=== PATIENT | male | born 1950 | race Caucasian/White ===

== ENCOUNTER 2017-02-21 21:09 | Inpatient (IN) | payer OTHER ==
[~2017-02-21] VITALS: Ht 180.3 cm; Wt 94.8 kg
[2017-02-21] MEDS ORDERED: INSU100I SC ×3 (21:51)
[2017-02-21] MEDS ORDERED: INSDGI SC (21:51)
[2017-02-21 21:54] LABS: BASO % 0.3 %; BASO ABS # 0.03 K/uL (0-0.2); COMPLETE YES; EOS % 1.8 %; HEMATOCRIT 43.2 % (42-52); IG% 0.4 %; LYMPH ABS # 3.59 K/uL (1.2-3.4); MEAN CELL VOLUME 92.7 fL (80-100); MEAN CORPUSCULAR HEMOGLOBIN 32.2 pg (25-34); MEAN CORPUSCULAR HGB CONC 34.7 g/dl (32-36); MEAN PLATELET VOLUME 11.6 fL (7.4-10.4); MONO % 8.3 %; NEUT % 55.2 %; PLATELET COUNT 211 K/uL (130-400); RED BLOOD COUNT 4.66 M/uL (4.7-6.1); WHITE BLOOD COUNT 10.55 K/uL (4.8-10.8)
--- NOTE | 2017-02-21 22:00 | EMERGENCY ROOM VISIT NOTE ---
History Report prepared by Jaycee: Christian Valentin Under the Supervision of: Dr. Jeff Mcdaniels M.D. 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 The patient had 1 episode of syncope while he was getting gas for his car. He awoke with people surrounding him and EMS arriving. Per EMS, his blood sugar was less than 70. He was given orange juice, Zofran, and 1/2 amp dextrose en route. He notes head pain and right rib pain. He rates his pain a 4/10 in severity. He denies any chest pain, shortness of breath, abdominal pain, leg swelling, or neck pain. He notes that his eating time has been erratic recently and he may have taken too much insulin today. He denies a history of blood clots. 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 A total of 10 systems reviewed and were otherwise negative. Past Medical & Surgical Medical Problems: (1) Diabetes Family History Omitted secondary to age. Social History Smoking Status: Never Smoker Smokeless Tobacco Use: No Drug Use: none Marital Status: Housing Status: lives with family Current/Historical Medications Scheduled Insulin Glargine (Lantus), 41 UNITS SC QPM Insulin Lispro (Human) (Humalog), 15 UNITS SC QAM Insulin Lispro (Human) (Humalog), 15 UNITS SC AT LUNCH Insulin Lispro (Human) (Humalog), 20 UNITS SC QPM Allergies Coded Allergies: No Known Allergies (Unverified , 02/21/17) Physical Exam Vital Signs Date Time Temp Pulse Resp B/P Pulse Ox O2 Delivery O2 Flow Rate FiO2 02/21/17 23:15 66 16 143/117 97 02/21/17 21:21 60 02/21/17 21:16 36.5 65 16 162/84 98 Room Air Physical Exam GENERAL: Patient is well appearing and in no acute distress. HEENT: Normocephalic, mucous membranes moist, no nasal congestion, no scleral icterus. Large abrasion to the right gnosticism. NECK: No stridor, no adenopathy, no meningismus, trachea is midline. LUNGS: No dyspnea. Clear to auscultation and equal bilaterally. No wheeze, no rhonchi. HEART: Regular rate and rhythm. No murmurs, rubs, gallops appreciated. ABDOMEN: Soft, nontender, bowel sounds positive, no masses appreciated, no peritonitis. BACK: No midline tenderness, no CVA tenderness EXTREMITIES: Normal motion all extremities, no cyanosis, no edema. NEUROLOGIC: Alert and oriented, no acute motor or sensory deficits, no focal weakness, cranial nerves grossly intact. SKIN: No rash, no jaundice, no diaphoresis. Medical Decision & Procedures ER Provider Diagnostic Interpretation: Radiology results are stated below per my review and radiologist interpretation: CHEST ONE VIEW PORTABLE HISTORY: syncope COMPARISON: None. FINDINGS: The lungs are clear. Cardiac silhouette is top normal in size. No pleural effusions. No pneumothorax. IMPRESSION: No acute process. Electronically signed by: Uog Blount M.D. 02/21/2017 10:25 PM Dictated Date/Time: 02/21/2017 10:[address]AST CT DOSE: 712.55 mGy.cm HISTORY: syncope left head injury TECHNIQUE: Multiaxial CT images of the head were performed without the use of intravenous contrast. Automated exposure control was utilized for this study. Comparison: None. Findings: The paranasal sinuses and mastoid air cells are clear. The calvarium and skull base are intact. The ventricles and sulci are within normal limits. There is no mass, hematoma, midline shift, or acute infarct. Mild right-sided scalp swelling. Impression: No acute intracranial abnormality. Electronically signed by: Ugo Blount M.D. 02/21/2017 10:40 PM Dictated Date/Time: 02/21/2017 10:36 PM CTA CHEST: No prior CT. Chest x-ray same date Very small portion of the lung bases are not imaged. No evidence for PE. Borderline heart size. Atelectasis. No CT evidence for edema. No consolidation. No effusions seen. Old granulomatous disease, too small to characterize low-density liver lesions, and other incidental findings. Radiologist: Pritesh Bernal M.D. Laboratory Results 02/21/17 20:30 Red Blood Count 4.66, Mean Corpuscular Volume 92.7, Mean Corpuscular Hemoglobin 32.2, Mean Corpuscular Hemoglobin Concent 34.7, Mean Platelet Volume 11.6, Neutrophils (%) (Auto) 55.2, Lymphocytes (%) (Auto) 34.0, Monocytes (%) (Auto) 8.3, Eosinophils (%) (Auto) 1.8, Basophils (%) (Auto) 0.3, Neutrophils # (Auto) 5.82, Lymphocytes # (Auto) 3.59, Monocytes # (Auto) 0.88, Eosinophils # (Auto) 0.19, Basophils # (Auto) 0.03 02/21/17 20:30 Test 02/21/17 20:30 02/21/17 22:00 02/21/17 22:36 02/21/17 22:48 White Blood Count 10.55 K/uL (4.8-10.8) Red Blood Count 4.66 M/uL (4.7-6.1) Hemoglobin 15.0 g/dL (14.0-18.0) Hematocrit 43.2 % (42-52) Mean Corpuscular Volume 92.7 fL (80-100) Mean Corpuscular Hemoglobin 32.2 pg (25-34) Mean Corpuscular Hemoglobin Concent 34.7 g/dl (32-36) Platelet Count 211 K/uL (130-400) Mean Platelet Volume 11.6 fL (7.4-10.4) Neutrophils (%) (Auto) 55.2 % Lymphocytes (%) (Auto) 34.0 % Monocytes (%) (Auto) 8.3 % Eosinophils (%) (Auto) 1.8 % Basophils (%) (Auto) 0.3 % Neutrophils # (Auto) 5.82 K/uL (1.4-6.5) Lymphocytes # (Auto) 3.59 K/uL (1.2-3.4) Monocytes # (Auto) 0.88 K/uL (0.11-0.59) Eosinophils # (Auto) 0.19 K/uL (0-0.5) Basophils # (Auto) 0.03 K/uL (0-0.2) RDW Standard Deviation 42.8 fL (36.4-46.3) RDW Coefficient of Variation 12.8 % (11.5-14.5) Immature Granulocyte % (Auto) 0.4 % Immature Granulocyte # (Auto) 0.04 K/uL (0.00-0.02) Anion Gap 8.0 mmol/L (3-11) Est Creatinine Clear Calc Drug Dose 100.0 ml/min Estimated GFR () 105.5 Estimated GFR (Non- 91.0 BUN/Creatinine Ratio 15.9 (10-20) Calcium Level 8.7 mg/dl (8.5-10.1) Total Bilirubin 0.4 mg/dl (0.2-1) Aspartate Amino Transf (AST/SGOT) 19 U/L (15-37) Alanine Aminotransferase (ALT/SGPT) 24 U/L (12-78) Alkaline Phosphatase 74 U/L (45-117) Total Creatine Kinase 169 U/L (39-308) Creatine Kinase MB 1.3 ng/ml (0.5-3.6) Creatine Kinase MB Ratio 0.8 (0-3.0) Total Protein 7.2 gm/dl (6.4-8.2) Albumin 3.8 gm/dl (3.4-5.0) Globulin 3.4 gm/dl (2.5-4.0) Albumin/Globulin Ratio 1.1 (0.9-2) Thyroid Stimulating Hormone (TSH) 1.640 uIu/ml (0.300-4.500) Urine Color YELLOW Urine Appearance CLEAR (CLEAR) Urine pH 8.5 (4.5-7.5) Urine Specific [place] 1.014 (1.000-1.030) Urine Protein NEG (NEG) Urine Glucose (UA) NEG (NEG) Urine Ketones NEG (NEG) Urine Occult Blood NEG (NEG) Urine Nitrite NEG (NEG) Urine Bilirubin NEG (NEG) Urine Urobilinogen NEG (NEG) Urine Leukocyte Esterase NEG (NEG) Urine WBC (Auto) 1-5 /hpf (0-5) Urine RBC (Auto) 0-4 /hpf (0-4) Urine Hyaline Casts (Auto) 1-5 /lpf (0-5) Urine Epithelial Cells (Auto) >30 /lpf (0-5) Urine Bacteria (Auto) NEG (NEG) Urine Renal Epithelial Cells 0-5 /lpf (0-5) D-Dimer 2600 ug/L FEU (0-500) Bedside Glucose 75 mg/dl (70-99) Test 02/22/17 00:12 Bedside Troponin I 0.010 ng/ml (0-0.045) Laboratory results as reviewed by me. Medications Administered Medications (Trade) Dose Ordered Sig/Mp Route Start Time Stop Time Status Last Admin Dose Admin Ibuprofen (Motrin Tab) 600 mg NOW STAT PO 02/21/17 22:03 02/21/17 22:04 DC 02/21/17 22:13 600 MG Dextrose (Dextrose 50% 50ML Syringe) 50 ml NOW STAT IV 02/21/17 22:42 02/21/17 22:43 DC 02/21/17 22:53 50 ML Ondansetron HCl (Zofran Inj) 4 mg NOW STAT IV 02/21/17 23:01 02/21/17 23:03 DC 02/21/17 23:15 4 MG ECG Indication: syncope Rate (beats per minute): 61 Rhythm: normal sinus Findings: no acute ischemic change, no ectopy ED Course 0: The patient was evaluated in room A9. A complete history and physical exam was performed. 2202: Ordered Ibuprofen 600 mg PO 2241: Ordered Dextrose 50 ml IV 6: He informed me that this blood sugar must be low because he is feeling lightheaded. 2300: Ordered Zofran Inj 4 mg IV 230: The patient's blood sugar is dropping. We gave him an AMP 350. He is beginning to have nausea and shortness of breath. He also told me that he remembers some from his syncopal episode. He remembers trying to step over the gas line when he was fueling his car, and he may have tripped. 0: Reevaluated the patient. Discussed results. Given symptoms and findings I have advised he be evaluated by hospitalist and he is agreeable to this. Medical Decision Differential: Vaso-vagal, Intracerebral Event, Neurologic, Infectious, Volume Deficiency, Hypoglycemia, Electrolyte Abnormality, Cardiac Source, Toxicologic, amongst other pathologies entertained. 66 yr old male arrives for evaluation post syncope. Hypoglycemic and requiring dextrose, multiple rounds of food to keep sugars up. CT head negative. Dimer elevated thus with travel will do CT chest which was fortunately negative. Trop has gone from zero to 0.01 an almost imperceptible increase and is still within normal limits thus I have low suspecion that htis iwas cardiac event though it is a change. With his history will need syncope rule out. Impression Primary Impression: Syncope and collapse Additional Impressions: Head injury, closed Concussion Hypoglycemia Scribe Attestation The scribe's documentation has been prepared under my direction and personally reviewed by me in its entirety. I confirm that the note above accurately reflects all work, treatment, procedures, and medical decision making performed by me. Departure Information Dispostion Home / Self-Care Referrals No Doctor, Assigned (PCP) Forms HOME CARE DOCUMENTATION FORM, IMPORTANT VISIT INFORMATION Patient Instructions My [facility] Problem Qualifiers Additional Impressions: Head injury, closed Encounter type: initial encounter Qualified Codes: S09.90XA - Unspecified injury of head, initial encounter Concussion Encounter type: initial encounter Loss of consciousness presence/duration: with LOC of 30 min or less Qualified Codes: S06.0X1A - Concussion with loss of consciousness of 30 minutes or less, initial encounter
[2017-02-21] MEDS ORDERED: IBUPROFEN 600 MG TAB PO STA (22:03)
[2017-02-21 22:20] LABS: URINE APPEARANCE CLEAR (CLEAR); URINE BILIRUBIN NEG (NEG); URINE COLOR YELLOW; URINE EPITHELIAL CELL AUTO >30 /lpf (0-5); URINE NITRITE NEG (NEG); URINE PH 8.5 (4.5-7.5); URINE SPECIFIC GRAVITY 1.014 (1.000-1.030); UROBILINOGEN NEG (NEG); ZZUR CULT IF INDIC CLEAN CATCH NO
[2017-02-21 22:27] LABS: MANUAL MICROSCOPIC REQUIRED? NO; REVIEW REQ? YES
--- NOTE | 2017-02-21 22:27 | DIAGNOSTIC IMAGING REPORT ---
CHEST ONE VIEW PORTABLE HISTORY: syncope COMPARISON: None. FINDINGS: The lungs are clear. Cardiac silhouette is top normal in size. No pleural effusions. No pneumothorax. IMPRESSION: No acute process. Electronically signed by: Ugo Blount M.D. 02/21/2017 10:25 PM Dictated Date/Time: 02/21/2017 10:24 PM
[2017-02-21 22:29] LABS: POTASSIUM 3.4 mmol/L (3.5-5.1)
[2017-02-21 22:38] LABS: ALB/GLOB RATIO 1.1 (0.9-2); BUN/CREATININE RATIO 15.9 (10-20); CALCIUM 8.7 mg/dl (8.5-10.1); CKMB/CK RATIO 0.8 (0-3.0); CREATININE 0.86 mg/dl (0.60-1.40); THYROID STIMULATING HORMONE 1.64 uIu/ml (0.300-4.500)
[2017-02-21] MEDS ORDERED: DEXTROSE 50% 50 ML SYR IV STA (22:42)
--- NOTE | 2017-02-21 22:42 | DIAGNOSTIC IMAGING REPORT ---
HEAD CT NONCONTRAST CT DOSE: 712.55 mGy.cm HISTORY: syncope left head injury TECHNIQUE: Multiaxial CT images of the head were performed without the use of intravenous contrast. Automated exposure control was utilized for this study. Comparison: None. Findings: The paranasal sinuses and mastoid air cells are clear. The calvarium and skull base are intact. The ventricles and sulci are within normal limits. There is no mass, hematoma, midline shift, or acute infarct. Mild right-sided scalp swelling. Impression: No acute intracranial abnormality. Electronically signed by: Ugo Blount M.D. 02/21/2017 10:40 PM Dictated Date/Time: 02/21/2017 10:36 PM
[2017-02-21] MEDS ORDERED: ONDANSETRON INJ 2 MG/ML 2 ML VIAL IV STA (23:01)
[2017-02-21] MEDS ORDERED: OPTIRAY 320 IV PRN (23:15)
[2017-02-22] VITALS (9 sets, daily range): BP systolic 141–186; BP diastolic 69–90; PULSE 61–68; TEMP 36.6–37; O2SAT 94–97; Ht 180.3 cm; Wt 94.8 kg
[2017-02-22] MEDS ORDERED: GLUCOSE 10 TABS/TUBE PO PRN (01:45)
[2017-02-22] MEDS ORDERED: DEXTROSE 50% 50 ML SYR IV PRN (01:45)
[2017-02-22] MEDS ORDERED: GLUCOSE 40% GEL 15 GM TUBE PO PRN (01:45)
[2017-02-22] MEDS ORDERED: GLUCAGON FOR INJ 1 MG VIAL SQ PRN (01:45)
--- NOTE | 2017-02-22 01:50 | History and Physical ---
History & Physical Date & Time of Service: Feb 22, 2017 at 01:50 Chief Complaint: Syncope, Hypoglycemia Primary Care Physician: No Doctor, Assigned History of Present Illness Source: patient 66-year-old male with past medical history of type 1 diabetes presented to the ER after a syncopal episode. The patient was traveling from [place] to [place] and had stopped for gas. He had experienced syncopal episode during that time and per EMS his blood sugar was less than 70. The patient states that he vaguely recollects having a mechanical fall while sliding on some Loose gravel and tripping over the hose. He denies any chest pain, palpitations, skipped beats, dizziness, shakiness or diaphoresis prior to the fall. On route to the hospital, he was given orange juice Zofran, half amp dextrose. He complains of pain on the right side of his head and on his right rib. He denies any chest pain, difficulty breathing, Swelling in the calf, abdominal pain. He notes that he has been eating erratically and may have taken too much insulin today. He usually takes 41 units of U-100 Lantus at bedtime and has Humalog coverage for meals. Past Medical/Surgical History Medical Problems: (1) Diabetes Status: Chronic Social History Smoking Status: Never Smoker Smokeless Tobacco Use: No Drug Use: none Marital Status: Allergies Coded Allergies: No Known Allergies (Unverified , 02/21/17) Home Medications Scheduled Insulin Glargine (Lantus), 41 UNITS SC QPM Insulin Lispro (Human) (Humalog), 15 UNITS SC QAM Insulin Lispro (Human) (Humalog), 15 UNITS SC AT LUNCH Insulin Lispro (Human) (Humalog), 20 UNITS SC QPM Review of Systems Constitutional: No chills, No fever Eyes: No worsening of vision ENT: No hearing loss Respiratory: No cough, No sputum Cardiovascular: No chest pain, No orthopnea Abdomen: + nausea, No pain, No vomiting Musculoskeletal: No joint pain Genitourinary - Male: No dysuria, No hematuria Neurologic: No memory loss Psychiatric: No depression symptoms Hematologic / Lymphatic: No abnormal bleeding/bruising Physical Exam Vital Signs Date Time Temp Pulse Resp B/P Pulse Ox O2 Delivery O2 Flow Rate FiO2 02/21/17 23:15 66 16 143/117 97 02/21/17 21:21 60 02/21/17 21:16 36.5 65 16 162/84 98 Room Air General Appearance: WD/WN, no apparent distress Head: normocephalic, + pertinent finding (bump on right side of head) Eyes: normal inspection ENT: normal ENT inspection, hearing grossly normal Neck: supple, no adenopathy Respiratory/Chest: chest non-tender, lungs clear, normal breath sounds, no respiratory distress Cardiovascular: regular rate, rhythm, no edema, no murmur Abdomen/GI: normal bowel sounds, non tender, soft Back: normal inspection Extremities/Musculoskelatal: normal inspection, no calf tenderness, no pedal edema 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, no motor/sensory deficits, alert, normal mood/affect, oriented x 3 Skin: normal color Diagnostics Laboratory Results Results Past 24 Hours Test 02/21/17 20:30 02/21/17 21:30 02/21/17 22:00 02/21/17 22:03 Range/Units White Blood Count 10.55 4.8-10.8 K/uL Red Blood Count 4.66 4.7-6.1 M/uL Hemoglobin 15.0 14.0-18.0 g/dL Hematocrit 43.2 42-52 % Mean Corpuscular Volume 92.7 80-100 fL Mean Corpuscular Hemoglobin 32.2 25-34 pg Mean Corpuscular Hemoglobin Concent 34.7 32-36 g/dl Platelet Count 211 130-400 K/uL Mean Platelet Volume 11.6 7.4-10.4 fL Neutrophils (%) (Auto) 55.2 % Lymphocytes (%) (Auto) 34.0 % Monocytes (%) (Auto) 8.3 % Eosinophils (%) (Auto) 1.8 % Basophils (%) (Auto) 0.3 % Neutrophils # (Auto) 5.82 1.4-6.5 K/uL Lymphocytes # (Auto) 3.59 1.2-3.4 K/uL Monocytes # (Auto) 0.88 0.11-0.59 K/uL Eosinophils # (Auto) 0.19 0-0.5 K/uL Basophils # (Auto) 0.03 0-0.2 K/uL RDW Standard Deviation 42.8 36.4-46.3 fL RDW Coefficient of Variation 12.8 11.5-14.5 % Immature Granulocyte % (Auto) 0.4 % Immature Granulocyte # (Auto) 0.04 0.00-0.02 K/uL Sodium Level 145 136-145 mmol/L Potassium Level 3.4 3.5-5.1 mmol/L Chloride Level 108 98-107 mmol/L Carbon Dioxide Level 29 21-32 mmol/L Anion Gap 8.0 3-11 mmol/L Blood Urea Nitrogen 14 7-18 mg/dl Creatinine 0.86 0.60-1.40 mg/dl Est Creatinine Clear Calc Drug Dose 100.0 ml/min Estimated GFR () 105.5 Estimated GFR (Non- 91.0 BUN/Creatinine Ratio 15.9 10-20 Random Glucose 57 70-99 mg/dl Calcium Level 8.7 8.5-10.1 mg/dl Total Bilirubin 0.4 0.2-1 mg/dl Aspartate Amino Transf (AST/SGOT) 19 15-37 U/L Alanine Aminotransferase (ALT/SGPT) 24 12-78 U/L Alkaline Phosphatase 74 45-117 U/L Total Creatine Kinase 169 39-308 U/L Creatine Kinase MB 1.3 0.5-3.6 ng/ml Creatine Kinase MB Ratio 0.8 0-3.0 Total Protein 7.2 6.4-8.2 gm/dl Albumin 3.8 3.4-5.0 gm/dl Globulin 3.4 2.5-4.0 gm/dl Albumin/Globulin Ratio 1.1 0.9-2 Thyroid Stimulating Hormone (TSH) 1.640 0.300-4.500 uIu/ml Bedside Glucose 109 70-99 mg/dl Urine Color YELLOW Urine Appearance CLEAR CLEAR Urine pH 8.5 4.5-7.5 Urine Specific [place] 1.014 1.000-1.030 Urine Protein NEG NEG Urine Glucose (UA) NEG NEG Urine Ketones NEG NEG Urine Occult Blood NEG NEG Urine Nitrite NEG NEG Urine Bilirubin NEG NEG Urine Urobilinogen NEG NEG Urine Leukocyte Esterase NEG NEG Urine WBC (Auto) 1-5 0-5 /hpf Urine RBC (Auto) 0-4 0-4 /hpf Urine Hyaline Casts (Auto) 1-5 0-5 /lpf Urine Epithelial Cells (Auto) >30 0-5 /lpf Urine Bacteria (Auto) NEG NEG Urine Renal Epithelial Cells 0-5 0-5 /lpf Bedside Troponin I 0.000 0-0.045 ng/ml Test 02/21/17 22:36 02/21/17 22:48 02/22/17 00:12 Range/Units D-Dimer 2600 0-500 ug/L FEU Bedside Glucose 75 70-99 mg/dl Bedside Troponin I 0.010 0-0.045 ng/ml Diagnostic Radiology CHEST ONE VIEW PORTABLE HISTORY: syncope COMPARISON: None. FINDINGS: The lungs are clear. Cardiac silhouette is top normal in size. No pleural effusions. No pneumothorax. IMPRESSION: No acute process. HEAD CT NONCONTRAST CT DOSE: 712.55 mGy.cm HISTORY: syncope left head injury TECHNIQUE: Multiaxial CT images of the head were performed without the use of intravenous contrast. Automated exposure control was utilized for this study. Comparison: None. Findings: The paranasal sinuses and mastoid air cells are clear. The calvarium and skull base are intact. The ventricles and sulci are within normal limits. There is no mass, hematoma, midline shift, or acute infarct. Mild right-sided scalp swelling. Impression: No acute intracranial abnormality. CTA CHEST: No prior CT. Chest x-ray same date Very small portion of the lung bases are not imaged. No evidence for PE. Borderline heart size. Atelectasis. No CT evidence for edema. No consolidation. No effusions seen. Old granulomatous disease, too small to characterize low-density liver lesions, and other incidental findings. Radiologist: Pritesh Bernal M.D. EKG NSR , 61 BPM Impression Assessment and Plan 66-year-old male with past medical history of type 1 diabetes presented to the ER after a syncopal episode. The patient was traveling from [place] to [place] and had stopped for gas. He had experienced syncopal episode during that time and per EMS his blood sugar was less than 70. Unclear if his fall was secondary to syncopal episode secondary to hypoglycemic event or if he had a Mechanical fall resulting in syncopal episode. he does state that he had taken extra insulin and that his eating has been erratic. Syncopal episode: Mechanical fall versus hypoglycemic event - EKG: NSR - Troponin trended x3 - BSG per EMS at 70, received orange juice, half amp of D50 - Monitor blood sugars every hour until stabilized and then every 2 hours - Hold p.m. Lantus - Head CT: No acute process - Chest CTA: (In response to elevated d-dimer) negative for PE Type 1 diabetes: Home dose: 41 units U-100 Lantus at bedtime, 15 units lispro at breakfast, lunch , 20 units lispro at dinner - Holding bedtime Lantus - Blood sugar checks every hour until stabilized and then every 2 hours - Restart home dose based on blood sugars - Hemoglobin A1c Right-sided rib pain: - Topical Voltaren gel DVT prophylaxis: SCDs Full code Disposition: Monitor in telemetry Level of Care Telemetry Resuscitation Status FULL RESUSCITATION VTE Prophylaxis VTE Risk Assessment Done? Y/N: Yes Risk Level: Moderate Given or contraindicated: SCD's Assessment and Plan Attending Addendum: I have physically seen and examined this patient, have directed their medical care, have supervised the medical residents activities, and agree with the H&P as noted above, with the following changes: NONE
[2017-02-22] MEDS: NSS + 20MEQ KCL 1000ML 1,000 ML IV SCH ×3 (05:46→16:12)
[2017-02-22] MEDS ORDERED: INSULIN GLARGINE SOLOSTAR 100 UNITS/ML 3 ML PEN SC STA (06:22)
[2017-02-22] MEDS ORDERED: INSULIN GLARGINE PER UNIT 20 UNITS in SYRINGE 0 ML SC ONE (06:30)
--- NOTE | 2017-02-22 06:56 | DIAGNOSTIC IMAGING REPORT ---
CT ANGIOGRAPHY OF THE CHEST, PULMONARY EMBOLUS PROTOCOL CLINICAL HISTORY: Right sided chest pain. COMPARISON STUDY: Chest radiograph February 21, 2017. TECHNIQUE: Following IV administration of 94 mL of Optiray-320, helical axial images of the chest were obtained utilizing the pulmonary embolus protocol. Maximal intensity projections and sagittal and coronal reformats were viewed on an independent 3D workstation. IV contrast was administered without complication. CT DOSE: 401.68 mGy.cm FINDINGS: No pulmonary emboli are identified. There is no evidence of thoracic aortic dissection. Cardiac size is at the upper limits of normal. There is no pericardial effusion. No enlarged thoracic lymph nodes are present. There are no areas of consolidation to suggest pneumonia. Groundglass opacities represent atelectasis. There is no pneumothorax or pleural effusion. Visualized portions of the bony thorax are unremarkable. A few subcentimeter right hepatic lobe lesions likely reflect cysts. IMPRESSION: 1. No pulmonary emboli identified. 2. No acute intrathoracic findings. Electronically signed by: Glen Tomlinson M.D. 02/22/2017 6:54 AM Dictated Date/Time: 02/22/2017 6:49 AM
[2017-02-22 07:50] LABS: BLOOD UREA NITROGEN 14 mg/dl (7-18); BUN/CREATININE RATIO 13.7 (10-20); CALCIUM 8.4 mg/dl (8.5-10.1); CARBON DIOXIDE 27 mmol/L (21-32); CHLORIDE 103 mmol/L (98-107); GLUCOSE 363 mg/dl (70-99); SODIUM 137 mmol/L (136-145)
[2017-02-22] MEDS: DICLOFENAC SOD 1% GEL 100 GM TUBE EXT SCH ×3 (07:52→16:11)
[2017-02-22 08:02] LABS: BETA-HYDROXYBUTYRATE 7.93 mg/dL (0.2-2.81)
[2017-02-22] MEDS: INSULIN ASPART 100 UNITS/ML 3 ML PEN SC SCH ×2 (13:01→17:22)
[2017-02-22 13:48] LABS: HEMATOCRIT 41.1 % (42-52); MEAN CELL VOLUME 92.8 fL (80-100); MEAN CORPUSCULAR HEMOGLOBIN 32.1 pg (25-34); MEAN CORPUSCULAR HGB CONC 34.5 g/dl (32-36); MEAN PLATELET VOLUME 11.8 fL (7.4-10.4); PLATELET COUNT 196 K/uL (130-400); RED BLOOD COUNT 4.43 M/uL (4.7-6.1); WHITE BLOOD COUNT 11.11 K/uL (4.8-10.8)
[2017-02-22] MEDS ORDERED: INSULIN GLARGINE SOLOSTAR 100 UNITS/ML 3 ML PEN SC SCH (17:15)
--- NOTE | 2017-02-22 17:54 | Discharge Instructions ---
Discharge Instructions Date of Service Feb 22, 2017. Admission Reason for Admission: Episode Of Syncope, Hypoglycemia, Syncopal Episode Discharge Discharge Diagnosis / Problem: Mechanical Fall, Hypoglycemia Discharge Goals Goal(s): Decrease discomfort, Improve disease control, Diagnostic testing, Therapeutic intervention, Prevent Disease Progression Activity Recommendations Activity Limitations: as noted below Lifting Limitations: gradually increase as tolerated Exercise/Sports Limitations: as tolerated May Resume Sexual Activity: when tolerated Shower/Bathe: no limitations Driving or Machine Use: When cleared by PCP . Instructions / Follow-Up Instructions / Follow-Up Dear Mr. Womack, You were admitted due to concern of loss of consciousness resulting in a traumatic fall. Upon further discussion, it seems that you might have had a mechanical fall secondary to low blood sugars. We did monitor you on the cardiac floor and you were not found to have any abnormalities in electrical conduction of your heart. Your heart muscle enzymes were also normal. Your neurological exam was normal. You did have a CT scan of your head and a CT of your chest; both of which were normal. We recommend Close follow up with your PCP in the next 2-3 days for re-check of your neurological function. You may experience symptoms of post-concussion; headaches, blurry vision, feeling off balance, fatigue, memory changes, sensitivity to light or sound etc. However if you have any concerning signs such as weakness of your extremities, numbness/tingling, bowel/bladder incontinence, vision loss etc, please seek medical attention immediately. We recommend avoiding strenuous activity, driving, TV/screen time; anything that can cause mental or physical exhaustion for 1-2 weeks or until clearance by your PCP. If you have any new symptoms, chest pain, shortness of breath, neurological changes, please go to the Nearest ER. Also, Your blood pressure has been elevated. Please follow up with your PCP about this and continue taking your lisinopril as scheduled. Thank you. Current Hospital Diet Patient's current hospital diet: Diabetes Type 1 Diet Discharge Diet Recommended Diet: Diabetes Type 1 Diet Pending Studies Studies pending at discharge: no Work Instructions Return To Work: after follow-up Lifting Limitations: no more than 10 pounds Additional Instructions: For Medical reasons, Please Excuse Mr. Womack from his employment requirements until 03/01/17 or clearance by PCP. If he chooses to come to work early, please allow a graduated return. Medical Emergencies . Who to Call and When: Medical Emergencies: If at any time you feel your situation is an emergency, please call 911 immediately. . Non-Emergent Contact Non-Emergency issues call your: Primary Care Provider . . "Provider Documentation" section prepared by Kathie Dong. VTE Core Measure Inpt VTE Proph given/why not?: SCD's
--- NOTE | 2017-02-22 18:10 | Discharge Summary ---
Discharge Summary Date of Service Feb 22, 2017. (Kathie Hadley MD) Discharge Summary Admission Date: Feb 22, 2017 at 01:44 Discharge Disposition: Home Principal Diagnosis: Mechanical fall, hypoglycemia Procedures: CHEST ONE VIEW PORTABLE HISTORY: syncope COMPARISON: None. FINDINGS: The lungs are clear. Cardiac silhouette is top normal in size. No pleural effusions. No pneumothorax. IMPRESSION: No acute process. HEAD CT NONCONTRAST CT DOSE: 712.55 mGy.cm HISTORY: syncope left head injury TECHNIQUE: Multiaxial CT images of the head were performed without the use of intravenous contrast. Automated exposure control was utilized for this study. Comparison: None. Findings: The paranasal sinuses and mastoid air cells are clear. The calvarium and skull base are intact. The ventricles and sulci are within normal limits. There is no mass, hematoma, midline shift, or acute infarct. Mild right-sided scalp swelling. Impression: No acute intracranial abnormality. CT ANGIOGRAPHY OF THE CHEST, PULMONARY EMBOLUS PROTOCOL CLINICAL HISTORY: Right sided chest pain. COMPARISON STUDY: Chest radiograph February 21, 2017. TECHNIQUE: Following IV administration of 94 mL of Optiray-320, helical axial images of the chest were obtained utilizing the pulmonary embolus protocol. Maximal intensity projections and sagittal and coronal reformats were viewed on an independent 3D workstation. IV contrast was administered without complication. CT DOSE: 401.68 mGy.cm FINDINGS: No pulmonary emboli are identified. There is no evidence of thoracic aortic dissection. Cardiac size is at the upper limits of normal. There is no pericardial effusion. No enlarged thoracic lymph nodes are present. There are no areas of consolidation to suggest pneumonia. Groundglass opacities represent atelectasis. There is no pneumothorax or pleural effusion. Visualized portions of the bony thorax are unremarkable. A few subcentimeter right hepatic lobe lesions likely reflect cysts. IMPRESSION: 1. No pulmonary emboli identified. 2. No acute intrathoracic findings. (Kathie Hadley MD) Medication Reconciliation New Medications: Diclofenac Sod (Voltaren) 100 Appln/100 Gm Gel 1 APPLN EXT QID PRN for Pain for 30 Days, #1 BOX Continued Medications: Insulin Glargine (Lantus) 100 Unit/Ml Inj 41 UNITS SC QPM, VIAL Insulin Lispro (Human) (Humalog) 100 Unit/Ml Inj 15 UNITS SC QAM Insulin Lispro (Human) (Humalog) 100 Unit/Ml Inj 15 UNITS SC AT LUNCH Insulin Lispro (Human) (Humalog) 100 Unit/Ml Inj 20 UNITS SC QPM Discharge Exam This is a 66 y/o M with a h/o of Type 1 diabetes who presented after a questionable syncopal episode. He was reportedly travelling from [place] to [place] and had stopped for Gas. In the interim, he had tripped / fell over the gasline, hit his head and lost consciousness. ALS arrived on scene and found his blood sugar to be less than 70. He regained consciousness shortly after but was still relatively confused about the preceding events. He was given dextrose and apple juice, after which his blood sugars improved. He was brought to [facility] subsequently. While admitted, he had a CT scan of his head which was negative. His D-Dimer was elevated so he subsequently had a Chest CTA that was negative for PE. EKG was normal. Troponin x 3 were negative. He was monitored on Telemetry and there were no abnormal findings overnight. The next morning, the patient was able to recall the event and reported that it was not a syncopal episode; that he tripped over the line. He says he has relatively good control over his blood sugars and knows when he's hypoglycemic. He did report that the days prior to the incident, his meals and insulin timing were erratic (taking more insulin at times). He was otherwise neurologically intact and had minimal post-concussive symptoms ; primary headache. He was advised to limit strenuous activities for 1-2 weeks and we recommended close follow up with his PCP for neuro checks and clearance to drive. While here, his blood sugars were elevated; his lantus were administered accordingly and he was give instructions on how to resume his home regimen. The incident was likely related to combination of hypoglycemia and subsequent mechanical fall; unlikely cardiac/neurological causes of syncope. He was otherwise stable for discharge Review of Systems: Constitutional: No chills, No fatigue, No fever, No sweats, No weakness, No weight loss Eyes: + problem reported (mild bruising noted on right inner eyelid), No diplopia, No redness, No worsening of vision ENT: No hearing loss, No unusual epistaxis Respiratory: No cough, No dyspnea at rest, No dyspnea on exertion, No shortness of breath, No sputum, No wheezing Cardiovascular: No chest pain Abdomen: No constipation, No diarrhea, No nausea, No pain, No vomiting Musculoskeletal: + joint pain, + muscle pain Genitourinary - Male: No dysuria, No hematuria, No urinary frequency, No urinary urgency Neurologic: No balance problems, No memory loss, No numbness/tingling, No paralysis, No vertigo, No weakness Physical Exam: General Appearance: no apparent distress, + pertinent finding (right forehead bruising) Eyes: PERRL, EOMI ENT: hearing grossly normal Neck: supple, no adenopathy, thyroid normal, no JVD Respiratory/Chest: lungs clear, normal breath sounds, no respiratory distress, no accessory muscle use Cardiovascular: regular rate, rhythm, no edema, no murmur Abdomen / GI: normal bowel sounds, non tender, soft Extremities: normal inspection, no calf tenderness, no pedal edema, normal range of motion 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 (Kathie Hadley MD) Total Time Spent: Greater than 30 minutes (Florence Menon MD) Discharge Instructions Please refer to the electronic Patient Visit Report (Discharge Instructions) for additional information. (Kathie Hadley MD) Reviewed: Pt Seen/Exam by Me (Florence Menon MD) History Resident Physician Supervision Note: I was present with Dr. Hadley during the history and exam. I discussed the case with the resident and agree with the findings and plan as documented in the note. Any exceptions or clarifications are listed here: Patient doing very well maintained discharge. He has a headache, but no other signs or symptoms of concussion. He has had no events on telemetry that are significant. His blood sugars are now actually high as his Lantus dose was reduced on admission and he was given half amp of D50 on admission. He clearly remembers falling forward towards the ground as he tripped over the gas hose. His reports that he had called her a couple of hours prior to this when [place] coming back from [facility] and went very out of his way was very upset about it. She's thinks that he was very stressed and that led to his hypoglycemia. I do think that his adrenaline may have masked the symptoms of hypoglycemia and that is why he is unable to recognize like he usually does. Telemetry and signs reviewed, BP elevated but he did not take his lisinopril dose last night No acute distress, alert awake oriented 3 Extraocular muscles intact, pupils equally round and reactive to light and accommodation Small superficial abrasion and ecchymosis on right forehead with mild edema Regular rate and rhythm, no murmurs gallops rubs Clear to auscultation bilaterally, no wheezes crackles or rhonchi, breathing unlabored Abdomen soft nontender nondistended positive bowel sounds Extremities no edema 66-year-old male with history of type 1 diabetes and hypertension, here with likely mechanical fall but also with hypoglycemia. This was not a syncopal event.his cardiac biomarkers were negative 3. His ECG was normal. With mild concussion as well. Recommended complete physical and mental rest until follow- up with PCP. He will take the rest of his usual dose of Lantus before discharge which is an extra 20 units and then return to Lantus 40 units once daily tomorrow evening pre-meal short-acting NovoLog coverage. He will follow- up with his PCP within one week. He is recommended to not drive or work until after seen PCP. Documented By: Florence Menon (Florence Menon MD)
[2017-02-22] MEDS ORDERED: VLTG EXT (18:16)
== END 2017-02-22 19:23 | disposition home or self-care (01) | DRG 639 ==
LOC: ENRESERVTM → ENRESERVDT → C.EDA 21:12 → C.2T 02-22 01:44
PROVIDERS: ADMIT Family Medicine; ATTEND Hospitalist
DX: E10.649 Type 1 diabetes mellitus with hypoglycemia without coma (principal); R55 Syncope and collapse; Z91.19 Patient's noncompliance with other medical treatment and regimen; W22.8XXA Striking against or struck by other objects, initial encounter; Y92.524 Gas station as the place of occurrence of the external cause